=== PATIENT | female | born 1980 | race Caucasian/White ===

== ENCOUNTER 2018-04-20 22:40 | Emergency (ER) | payer OTHER ==
--- NOTE | 2018-04-20 23:46 | ERPHSYRPT ---
- History of Present Illness Time Seen by Provider: 04/20/18 23:46 Source: patient, family Exam Limitations: no limitations Patient Subjective Stated Complaint: pt states one hour ago began what felt like palpitaions and sob. no precipitating factors. pt states it has never happened before, but pt states she does suffer from anxiety attacks. Triage Nursing Assessment: nsr noted. pt slightly tachypnic. pt states she has chronic bronchitis Physician History: The patient is a 38-year-old female with family complaining that while watching a scary movie, she became short of breath with a rapid heart rate. She had just taken her Xanax she uses for anxiety and doesn't understand why she may have had a panic attack. The fast heart rate and shortness of breath lasted about an hour. It has completely resolved. She denies chest pain. Her past medical history significant for anxiety, major depressive disorder, PTSD, and Lucinda's thyroiditis. Her surgical history is significant for tubal ligation. Timing/Duration: today, hour(s) (1), resolved prior to arrival, sudden Activities at Onset: rest Severity of Dyspnea-Max: mild Severity of Dyspnea-Current: none Possible Cause: occasional episodes Modifying Factors: Improves With: nothing Associated Symptoms: heart racing Hx Tetanus, Diphtheria Vaccination/Date Given: No Hx Influenza Vaccination/Date Given: No Hx Pneumococcal Vaccination/Date Given: No Immunizations Up to Date: Yes - Review of Systems Constitutional: No Fever, No Chills Eyes: No Symptoms Ears, Nose, & Throat: No Symptoms Respiratory: Dyspnea Cardiac: Palpitations, No Chest Pain, No Edema, No Syncope Abdominal/Gastrointestinal: No Abdominal Pain, No Nausea, No Vomiting, No Diarrhea Genitourinary Symptoms: No Dysuria Musculoskeletal: No Back Pain, No Neck Pain Skin: No Rash Neurological: No Dizziness, No Focal Weakness, No Sensory Changes Psychological: No Symptoms Endocrine: No Symptoms Hematologic/Lymphatic: No Symptoms Immunological/Allergic: No Symptoms All Other Systems: Reviewed and Negative - Past Medical History Psycho-Social History: Anxiety, Depression Other Medical History: ptsd, major depressive disorder, aggorophobia, - Past Surgical History Past Surgical History: Yes Other Surgical History: pptl, ablasion - Social History Smoking Status: Current every day smoker How long have you smoked: 25 Exposure to second hand smoke: Yes Drug Use: marijuana Patient Lives Alone: Yes - Female History Hx Last Menstrual Period: n/a Hx Now: No - Nursing Vital Signs Nursing Vital Signs: Initial Vital Signs Temperature 98 F 04/20/18 22:44 Pulse Rate 81 04/20/18 22:44 Respiratory Rate 22 04/20/18 22:44 Blood Pressure 121/83 04/20/18 22:44 O2 Sat by Pulse Oximetry 95 04/20/18 22:44 Pain Scale Pain Intensity 0 - Physical Exam General Appearance: no apparent distress, alert Eye Exam: PERRL/EOMI Ears, Nose, Throat Exam: hearing grossly normal Neck Exam: normal inspection, supple Respiratory Exam: normal breath sounds Cardiovascular/Chest Exam: normal heart sounds, regular rate/rhythm Abdominal/Gastrointestinal Exam: soft, No tenderness, No distention, No mass Rectal Exam: not done Extremity Exam: non-tender, normal range of motion, normal inspection, no calf tenderness, no pedal edema Neurologic Exam: alert, oriented x 3, cooperative, respiratory care instructor II-XII nml as tested, sensation nml, No motor deficits Skin Exam: normal color, warm, No dry SpO2 Interpretation: normal SpO2: 95 O2 Delivery: Room Air - Radiology Exams Chest X-ray Interpretation: Interpreted by me, Negative (neg 2V chest, no comp cxr) Ordered Tests: Active Orders 24 hr Category Date Time Status Local Delivery Driver STAT Care 04/20/18 23:50 Active EKG-ER Only STAT Care 04/20/18 23:50 Active IV Insertion STAT Care 04/20/18 23:50 Active CHEST 2 VIEWS (PA AND LAT) Stat Exams 04/20/18 23:50 Taken CBC W DIFF Stat Lab 04/20/18 00:35 Completed CMP Stat Lab 04/20/18 00:35 Completed TROPONIN Q3H Lab 04/20/18 00:35 Received TROPONIN Q3H Lab 04/21/18 02:50 Ordered TROPONIN Q3H Lab 04/21/18 05:50 Ordered TROPONIN Q3H Lab 04/21/18 08:50 Ordered TROPONIN Q3H Lab 04/21/18 11:50 Ordered Lab/Rad Data: Laboratory Result Diagrams 04/20/18 00:35 04/20/18 00:35 Laboratory Results 04/20/18 04/20/18 04/20/18 Range/Units 00:35 00:35 00:35 WBC 9.8 (4.0-10.5) K/mm3 RBC 3.59 L (4.1-5.4) M/mm3 Hgb 12.1 (12.0-16.0) gm/dl Hct 36.1 (35-47) % MCV 100.6 H (78-100) fl MCH 33.7 H (26-32) pg MCHC 33.5 (32-36) g/dl RDW 13.0 (11.5-14.0) % Plt Count 242 (150-450) K/mm3 MPV 9.9 H (6-9.5) fl Gran % 65.3 (36.0-66.0) % Eos # (Auto) 0.01 (0-0.5) Absolute Lymphs (auto) 2.83 (1.0-4.6) Absolute Monos (auto) 0.55 (0.0-1.3) Lymphocytes % 28.8 (24.0-44.0) % Monocytes % 5.6 (0.0-12.0) % Eosinophils % 0.1 (0.00-5.0) % Basophils % 0.2 (0.0-0.4) % Absolute Granulocytes 6.42 (1.4-6.9) Basophils # 0.02 (0-0.4) Sodium 136 L (137-145) mmol/L Potassium 3.8 (3.5-5.1) mmol/L Chloride 106 (98-107) mmol/L Carbon Dioxide 23 (22-30) mmol/L Anion Gap 10.5 (5-15) MEQ/L BUN 13 (7-17) mg/dL Creatinine 0.71 (0.52-1.04) mg/dL Estimated GFR > 60.0 ML/MIN Glucose 99 (74-106) mg/dL Calcium 8.9 (8.4-10.2) mg/dL Total Bilirubin 0.40 (0.2-1.3) mg/dL AST 20 (14-36) U/L ALT 20 (0-35) U/L Alkaline Phosphatase 68 (38-126) U/L Troponin I < 0.012 (0.000-0.034) ng/mL Serum Total Protein 6.5 (6.3-8.2) g/dL Albumin 3.7 (3.5-5.0) g/dL - Progress Progress: improved Counseled pt/family regarding: lab results, diagnosis, rad results - Departure Time of Disposition: 01:24 Departure Disposition: Home Clinical Impression: Anxiety Condition: Stable Critical Care Time: No Referrals: ROXANA FANG [Primary Care Provider] -
[2018-04-21 00:41] LABS: BASOPHIL % 0.2 % (0.0-0.4); Basophil (Absolute #) 0.02 (0-0.4); Eosinophil % 0.1 % (0.00-5.0); Eosinophil (Absolute #) 0.01 (0-0.5); Granulocyte Absolute (ANC) 6.42 (1.4-6.9); Granulocytes % 65.3 % (36.0-66.0); Hematocrit 36.1 % (35-47); Hemoglobin 12.1 gm/dl (12.0-16.0); Lymphocyte (Absolute #) 2.83 (1.0-4.6); Lymphocytes % 28.8 % (24.0-44.0); Mean Cell Volume 100.6 fl (78-100); Mean Corpuscular Hemoglobin 33.7 pg (26-32); Mean Corpuscular Hgb Concent. 33.5 g/dl (32-36); Mean Platelet Volume 9.9 fl (6-9.5); Monocyte (Absolute #) 0.55 (0.0-1.3); Monocytes % 5.6 % (0.0-12.0); Platelet Count 242 K/mm3 (150-450); Red Blood Count 3.59 M/mm3 (4.1-5.4); White Blood Count 9.8 K/mm3 (4.0-10.5)
[2018-04-21 00:51] LABS: ALBUMIN 3.7 g/dL (3.5-5.0); ALKALINE PHOSPHATASE 68 U/L (38-126); ANION GAP 10.5 MEQ/L (5-15); BLOOD UREA NITROGEN 13 mg/dL (7-17); CHLORIDE 106 mmol/L (98-107); Calcium 8.9 mg/dL (8.4-10.2); Carbon Dioxide 23 mmol/L (22-30); Creatinine 1 0.71 mg/dL (0.52-1.04); Glucose 99 mg/dL (74-106); Potassium 3.8 mmol/L (3.5-5.1); SGOT/AST 20 U/L (14-36); SGPT/ALT 20 U/L (0-35); SODIUM 136 mmol/L (137-145); Total Protein 6.5 g/dL (6.3-8.2)
[2018-04-21 01:35] VITALS: BP 125/74; PULSE 81; O2SAT 92
--- NOTE | 2018-04-21 11:16 | XRAY ---
Exam: Two-view chest from 04/20/2018. Comparison: None available. Indication: 38-year-old female with history of anxiety; patient states around 9 PM this evening she felt like her heart was going "to beat out of her chest". Findings: Upright PA and lateral chest films were obtained. Multiple EKG leads are seen in place. The lungs are well expanded. The heart size and contour are normal. The whit and mediastinal structures appear intact. No air space infiltrates, vascular congestion, pneumothorax, or pleural fluid is seen. The posterior lung sulci have been barely cut off from the inferior margin of the lateral film. No acute osseous process is seen. Impression: 1. No acute cardiopulmonary process is seen.
== END 2018-04-21 01:35 | disposition home or self-care (01) ==
LOC: ED 22:40
DX: F41.9 Anxiety disorder, unspecified (principal); F32.9 Major depressive disorder, single episode, unspecified; F43.10 Post-traumatic stress disorder, unspecified
CPT/HCPCS: 36415; 71046; 80053; 84484; 85025; 93005; 93041; 99284

== ENCOUNTER 2018-10-26 08:42 | Emergency (ER) | payer MEDICAID, OTHER ==
--- NOTE | 2018-10-26 09:15 | ERPHSYRPT ---
- History of Present Illness Time Seen by Provider: 10/26/18 08:55 Source: patient Exam Limitations: no limitations Patient Subjective Stated Complaint: pt here for cough, pain to left side when takes deep breath for a week now,no fever. Triage Nursing Assessment: pt alert, resp easy, skin w.d.p,no edema, moves all ext well, has nonprductive cough Physician History: 38 y/o white female smoker and h/o copd presents with 1 week h/o cough and mild wheezing. pt denies fever but did noticed mild green sputum with cough. pt denies cp. pt does use a ventolin inhaler daily as needed. Timing/Duration: week(s) (1) Cough Quality/Degree: productive cough (greenish) Possible Cause: occasional episodes Modifying Factors: Improves With: albuterol inhaler, coughing Associated Symptoms: cough, wheezing (mild), No fever, No chills, No chest pain/ soreness, No sore throat Allergies/Adverse Reactions: No Known Drug Allergies Allergy (Unverified 10/26/18 08:57) Home Medications: Alprazolam 1 mg [Xanax 1 mg] 1 mg QID 10/26/18 [History] Brexpiprazole [Rexulti] 1 tab DAILY 10/26/18 [History] Cholecalciferol (Vitamin D3) [Vitamin D3] 1 ea DAILY 10/26/18 [History] Icosapent Ethyl [Vascepa] 1 gm DAILY 10/26/18 [History] Levothyroxine Sodium [Synthroid] 1 tab DAILY 10/26/18 [History] Metformin HCl 500 mg [Glucophage 500 MG] 500 mg BID 10/26/18 [History] Prazosin HCl 5 mg DAILY 10/26/18 [History] Prazosin HCl 5 mg DAILY 10/26/18 [History] Simvastatin 10 mg DAILY 10/26/18 [History] Venlafaxine HCl [Venlafaxine HCl ER] 300 mg DAILY 10/26/18 [History] Hx Tetanus, Diphtheria Vaccination/Date Given: No Hx Influenza Vaccination/Date Given: No Hx Pneumococcal Vaccination/Date Given: No Immunizations Up to Date: Yes - Review of Systems Constitutional: No Symptoms Eyes: No Symptoms Ears, Nose, & Throat: No Symptoms Respiratory: Cough, Wheezing Cardiac: No Symptoms Abdominal/Gastrointestinal: No Symptoms Genitourinary Symptoms: No Symptoms Musculoskeletal: No Symptoms Skin: No Symptoms Neurological: No Symptoms Psychological: No Symptoms Endocrine: No Symptoms Hematologic/Lymphatic: No Symptoms Immunological/Allergic: No Symptoms All Other Systems: Reviewed and Negative - Past Medical History Pertinent Past Medical History: No Neurological History: No Pertinent History ENT History: No Pertinent History Cardiac History: High Cholesterol Respiratory History: Bronchitis, COPD Endocrine Medical History: No Pertinent History Musculoskeletal History: No Pertinent History GI Medical History: No Pertinent History History: No Pertinent History Psycho-Social History: Anxiety, Depression Female Reproductive Disorders: No Pertinent History Other Medical History: ptsd, major depressive disorder, aggorophobia, - Past Surgical History Past Surgical History: Yes Neuro Surgical History: No Pertinent History Cardiac: No Pertinent History Respiratory: No Pertinent History Gastrointestinal: No Pertinent History Genitourinary: No Pertinent History Musculoskeletal: No Pertinent History Female Surgical History: Tubal Ligation, Other Other Surgical History: ablaSION - Social History Smoking Status: Current every day smoker How long have you smoked: 1/2 Exposure to second hand smoke: Yes Drug Use: none Patient Lives Alone: No - Female History Hx Last Menstrual Period: ablasion Hx Now: No - Nursing Vital Signs Nursing Vital Signs: Initial Vital Signs Temperature 98.2 F 10/26/18 08:52 Pulse Rate 90 10/26/18 08:52 Respiratory Rate 16 10/26/18 08:52 Blood Pressure 136/96 10/26/18 08:52 O2 Sat by Pulse Oximetry 96 10/26/18 08:52 Pain Scale Pain Intensity 8 - Physical Exam General Appearance: no apparent distress, alert, anxiety Eye Exam: PERRL/EOMI, eyes nml inspection Ears, Nose, Throat Exam: normal ENT inspection, moist mucous membranes Neck Exam: normal inspection, non-tender, supple, full range of motion Respiratory Exam: normal breath sounds, lungs clear, airway intact, No chest tenderness, No respiratory distress Cardiovascular Exam: regular rate/rhythm, normal heart sounds, normal peripheral pulses Gastrointestinal/Abdomen Exam: soft, normal bowel sounds, No tenderness Pelvic Exam: not done Rectal Exam: not done Back Exam: normal inspection, normal range of motion, No CVA tenderness, No vertebral tenderness Extremity Exam: normal inspection, normal range of motion, pelvis stable Neurologic Exam: alert, oriented x 3, cooperative, gate tender II-XII nml as tested Skin Exam: normal color, warm, dry Lymphatic Exam: adenopathy SpO2 Interpretation: normal SpO2: 96 O2 Delivery: Room Air - Course Nursing assessment & vital signs reviewed: Yes - Progress Progress: unchanged Air Movement: good Blood Culture(s) Obtained: No Antibiotics given: Yes (given pt get bronchitis often and routinely worsens to pneumonia) Counseled pt/family regarding: diagnosis, need for follow-up - Departure Departure Disposition: Home Clinical Impression: Bronchitis Condition: Stable Critical Care Time: No Referrals: ROXANA FANG [Primary Care Provider] - Additional Instructions: stop smoking. drink plenty of fluids. follow up with primary doctor for persistent symptoms. monitor your blood glucose closely while on the steroids. Prescriptions: Cefdinir 300 mg PO BID 7 Days #14 capsule Prednisone 10 mg [Deltasone 10 mg] 10 mg PO BID #6 tablet
[2018-10-26] MEDS ORDERED: solu-MEDROL 125 MG ONE (09:22)
[2018-10-26] MEDS ORDERED: Rocephin 1000 MG INJ ONE (09:23)
[2018-10-26] MEDS: Rocephin 1000 MG INJ IM ONE (09:25)
[2018-10-26] MEDS: solu-MEDROL 125 MG IM ONE (09:25)
[2018-10-26 09:40] VITALS: BP 130/92; PULSE 84; O2SAT 98
== END 2018-10-26 09:59 | disposition home or self-care (01) ==
LOC: ED 08:42
DX: J40 Bronchitis, not specified as acute or chronic (principal)
CPT/HCPCS: 96372; 99284; J0696; J2930

== ENCOUNTER 2019-05-16 11:09 | Emergency (ER) | payer MEDICAID, OTHER ==
[2019-05-16] MEDS ORDERED: Sodium Chloride 0.9% 1000 ML 1,000 ML IV STA (11:14)
[2019-05-16] MEDS ORDERED: Hydromorphone 1 mg/ml Ampule IV ONE (11:14)
[2019-05-16] MEDS ORDERED: Zofran 4 MG/2 ML VIAL IV ONE (11:14)
[2019-05-16] MEDS ORDERED: TORAdol 30 mg Injection IV ONE (11:14)
[2019-05-16] MEDS ORDERED: Zofran 4 MG/2 ML VIAL ONE (11:17)
[2019-05-16] MEDS ORDERED: TORAdol 30 mg Injection ONE (11:17)
[2019-05-16] MEDS ORDERED: Sodium Chloride 0.9% 1000 ML 1,000 ML ONE (11:17)
[2019-05-16] MEDS ORDERED: Hydromorphone 1 mg/ml Ampule ONE (11:17)
[2019-05-16 11:21] VITALS: O2SAT 99
--- NOTE | 2019-05-16 11:21 | ERPHSYRPT ---
- History of Present Illness Time Seen by Provider: 05/16/19 11:10 Historian: patient Exam Limitations: no limitations Physician History: This is a 39-year-old white female who presents with left flank pain that radiates to the left lower quadrant into the left groin. Onset of pain was this morning. There is described more of a mild pain but then suddenly, after being seen in outpatient clinic, the pain became worse. Patient was given a prescription for Macrobid antibiotic but did not even have time to fill it because of the sudden, severe onset of pain. She has had nausea and vomiting. Timing/Duration: today Quality: sharpness, stabbing Abdominal Pain Onset Location: LLQ, flank (Left) Pain Radiation: LLQ, groin (Left) Severity of Pain-Max: moderate Severity of Pain-Current: moderate Associated Symptoms: nausea, vomiting Previous symptoms: no prior history Allergies/Adverse Reactions: No Known Drug Allergies Allergy (Verified 05/16/19 11:21) Home Medications: Alprazolam 1 mg [Xanax 1 mg] 1 mg QID 10/26/18 [History] Brexpiprazole [Rexulti] 1 tab DAILY 10/26/18 [History] Cholecalciferol (Vitamin D3) [Vitamin D3] 1 ea DAILY 10/26/18 [History] Icosapent Ethyl [Vascepa] 1 gm DAILY 10/26/18 [History] Levothyroxine Sodium [Synthroid] 1 tab DAILY 10/26/18 [History] Metformin HCl 500 mg [Glucophage 500 MG] 500 mg BID 10/26/18 [History] Prazosin HCl 5 mg DAILY 10/26/18 [History] Simvastatin 10 mg DAILY 10/26/18 [History] Venlafaxine HCl [Venlafaxine HCl ER] 300 mg DAILY 10/26/18 [History] Hx Tetanus, Diphtheria Vaccination/Date Given: No Hx Influenza Vaccination/Date Given: No Hx Pneumococcal Vaccination/Date Given: No Travel Risk - International Travel Have you traveled outside of the country in past 3 weeks: No Have you or anyone close to you been diagnosed with or: No Do your reside in a community with a known COVID-19 case?: No - Coronavirus Screening Has patient experienced Coronavirus symptoms: No - Review of Systems Constitutional: No Symptoms Eyes: No Symptoms Ears, Nose, & Throat: No Symptoms Respiratory: No Symptoms Cardiac: No Symptoms Abdominal/Gastrointestinal: Abdominal Pain Genitourinary Symptoms: Flank Pain (Left) Musculoskeletal: No Symptoms Skin: No Symptoms Neurological: No Symptoms Psychological: No Symptoms Endocrine: No Symptoms Hematologic/Lymphatic: No Symptoms Immunological/Allergic: No Symptoms All Other Systems: Reviewed and Negative - Past Medical History Pertinent Past Medical History: No Neurological History: No Pertinent History ENT History: No Pertinent History Cardiac History: High Cholesterol Respiratory History: Bronchitis, COPD Endocrine Medical History: No Pertinent History Musculoskeletal History: No Pertinent History GI Medical History: No Pertinent History History: No Pertinent History Psycho-Social History: Anxiety, Depression Female Reproductive Disorders: No Pertinent History Other Medical History: ptsd, major depressive disorder, aggorophobia, - Past Surgical History Past Surgical History: Yes Neuro Surgical History: No Pertinent History Cardiac: No Pertinent History Respiratory: No Pertinent History Gastrointestinal: No Pertinent History Genitourinary: No Pertinent History Musculoskeletal: No Pertinent History Female Surgical History: Tubal Ligation, Other Other Surgical History: ablaSION - Social History Smoking Status: Current every day smoker How long have you smoked: 1/2 Exposure to second hand smoke: Yes Drug Use: none Patient Lives Alone: No - Nursing Vital Signs Nursing Vital Signs: Initial Vital Signs Temperature 97.1 F 05/16/19 11:10 Pulse Rate 69 05/16/19 11:10 Respiratory Rate 20 05/16/19 11:10 Blood Pressure 160/86 05/16/19 11:10 O2 Sat by Pulse Oximetry 99 05/16/19 11:10 Pain Scale Pain Intensity 4 - Physical Exam General Appearance: moderate distress, alert, anxiety, obese Eye Exam: PERRL/EOMI, eyes nml inspection Ears, Nose, Throat Exam: normal ENT inspection, moist mucous membranes Neck Exam: normal inspection, non-tender, supple, full range of motion Respiratory Exam: normal breath sounds, lungs clear, airway intact, No chest tenderness, No respiratory distress Cardiovascular Exam: regular rate/rhythm, normal heart sounds, normal peripheral pulses Gastrointestinal/Abdomen Exam: soft, normal bowel sounds, tenderness (mild llq) , No guarding, No rebound Pelvic Exam: not done Rectal Exam: not done Back Exam: normal inspection, normal range of motion, CVA tenderness (Left) Extremity Exam: normal inspection, normal range of motion, pelvis stable Neurologic Exam: alert, oriented x 3, cooperative, procedures rn II-XII nml as tested Skin Exam: normal color, warm, dry Lymphatic Exam: No adenopathy SpO2 Interpretation: normal O2 Delivery: Room Air - Course Nursing assessment & vital signs reviewed: Yes Ordered Tests: Active Orders 24 hr Category Date Time Status IV Insertion STAT Care 05/16/19 11:11 Active ABDOMEN AND PELVIS W/0 CONTRAS [CT] Stat Exams 05/16/19 11:14 Completed AMYLASE Stat Lab 05/16/19 11:27 Completed CBC W DIFF Stat Lab 05/16/19 11:27 Completed CMP Stat Lab 05/16/19 11:27 Completed LIPASE Stat Lab 05/16/19 11:27 Completed Medication Summary Generic Name Dose Route Start Last Admin Trade Name Freq PRN Reason Stop Dose Admin Sodium Chloride 1,000 mls @ 999 mls/hr 05/16/19 11:14 05/16/19 11:24 Sodium Chloride 0.9% 1000 Ml IV 05/16/19 12:14 999 mls/hr .Q1H1M STA Administration Discontinued Medications Generic Name Dose Route Start Last Admin Trade Name Freq PRN Reason Stop Dose Admin Hydromorphone HCl 1 mg 05/16/19 11:14 05/16/19 11:24 Hydromorphone 1 Mg/Ml Ampule IV 05/16/19 11:15 1 mg STAT ONE Administration Hydromorphone HCl Confirm 05/16/19 11:17 Hydromorphone 1 Mg/Ml Ampule Administered 05/16/19 11:18 Dose 1 mg .ROUTE .STK-MED ONE Sodium Chloride Confirm 05/16/19 11:17 Sodium Chloride 0.9% 1000 Ml Administered 05/16/19 11:18 Dose 1,000 mls @ ud .ROUTE .STK-MED ONE Ketorolac Tromethamine 30 mg 05/16/19 11:14 05/16/19 11:24 Toradol 30 Mg Injection IV 05/16/19 11:15 30 mg STAT ONE Administration Ketorolac Tromethamine Confirm 05/16/19 11:17 Toradol 30 Mg Injection Administered 05/16/19 11:18 Dose 30 mg .ROUTE .STK-MED ONE Ondansetron HCl 4 mg 05/16/19 11:14 05/16/19 11:24 Zofran 4 Mg/2 Ml Vial IV 05/16/19 11:15 4 mg STAT ONE Administration Ondansetron HCl Confirm 05/16/19 11:17 Zofran 4 Mg/2 Ml Vial Administered 05/16/19 11:18 Dose 4 mg .ROUTE .STK-MED ONE Lab/Rad Data: Laboratory Result Diagrams 05/16/19 11:27 05/16/19 11:27 Laboratory Results 05/16/19 05/16/19 Range/Units 11:27 11:27 WBC 10.3 (4.0-10.5) K/mm3 RBC 3.89 L (4.1-5.4) M/mm3 Hgb 13.2 (12.0-16.0) gm/dl Hct 39.4 (35-47) % MCV 101.3 H (78-100) fl MCH 33.9 H (26-32) pg MCHC 33.5 (32-36) g/dl RDW 12.4 (11.5-14.0) % Plt Count 294 (150-450) K/mm3 MPV 10.4 (7.5-11.0) fl Gran % 70.4 H (36.0-66.0) % Eos # (Auto) 0 (0-0.5) Absolute Lymphs (auto) 2.41 (1.0-4.6) Absolute Monos (auto) 0.61 (0.0-1.3) Lymphocytes % 23.4 L (24.0-44.0) % Monocytes % 5.9 (0.0-12.0) % Eosinophils % 0.0 (0.00-5.0) % Basophils % 0.3 (0.0-0.4) % Absolute Granulocytes 7.24 H (1.4-6.9) Basophils # 0.03 (0-0.4) Sodium 139 (137-145) mmol/L Potassium 3.4 L (3.5-5.1) mmol/L Chloride 109 H (98-107) mmol/L Carbon Dioxide 18 L (22-30) mmol/L Anion Gap 15.7 H (5-15) MEQ/L BUN 11 (7-17) mg/dL Creatinine 0.70 (0.52-1.04) mg/dL Estimated GFR > 60.0 ML/MIN Glucose 146 H (74-106) mg/dL Calcium 9.4 (8.4-10.2) mg/dL Total Bilirubin 0.50 (0.2-1.3) mg/dL AST 40 H (14-36) U/L ALT 47 H (0-35) U/L Alkaline Phosphatase 100 (38-126) U/L Serum Total Protein 7.3 (6.3-8.2) g/dL Albumin 4.1 (3.5-5.0) g/dL Amylase 55 (30-110) U/L Lipase 61 (23-300) U/L - Progress Progress: improved Progress Note: 05/16/19 11:51 The CAT scan of the abdomen and pelvis reveals a 2 to 3 mm distal left ureter calculus just proximal to the UVJ. There is minimal prominence of the left ureter and mild hydronephrosis present. Counseled pt/family regarding: lab results, diagnosis, need for follow-up, rad results - Departure Departure Disposition: Home Clinical Impression: Left ureteral calculus Condition: Stable Critical Care Time: No Additional Instructions: Drink plenty of fluids. Add ibuprofen 600 mg orally with food 3 times a day for the next 5 days. Follow-up with your primary care physician or urologist for further management. Take your Macrodantin prescription as prescribed. Prescriptions: Hydrocodone/APAP 5/325 [[place] 5/325 mg] 1 each PO Q8H PRN PRN #8 tablet MDD 3 PRN Reason: Pain
[2019-05-16 11:41] LABS: Absolute Neutrophil Ct (ANC) 7.24 (1.4-6.9); BASOPHIL % 0.3 % (0.0-0.4); Basophil (Absolute #) 0.03 (0-0.4); Eosinophil (Absolute #) 0 (0-0.5); Hematocrit 39.4 % (35-47); Hemoglobin 13.2 gm/dl (12.0-16.0); Lymphocyte (Absolute #) 2.41 (1.0-4.6); Lymphocytes % 23.4 % (24.0-44.0); Mean Cell Volume 101.3 fl (78-100); Mean Corpuscular Hemoglobin 33.9 pg (26-32); Mean Corpuscular Hgb Concent. 33.5 g/dl (32-36); Mean Platelet Volume 10.4 fl (7.5-11.0); Monocyte (Absolute #) 0.61 (0.0-1.3); Monocytes % 5.9 % (0.0-12.0); Neutrophil % 70.4 % (36.0-66.0); Platelet Count 294 K/mm3 (150-450); Red Blood Count 3.89 M/mm3 (4.1-5.4); Red Cell Distribution Width 12.4 % (11.5-14.0); White Blood Count 10.3 K/mm3 (4.0-10.5)
[2019-05-16 11:43] VITALS: BP 158/92; PULSE 92
[2019-05-16 11:46] LABS: ALBUMIN 4.1 g/dL (3.5-5.0); ALKALINE PHOSPHATASE 100 U/L (38-126); AMYLASE 55 U/L (30-110); ANION GAP 15.7 MEQ/L (5-15); BLOOD UREA NITROGEN 11 mg/dL (7-17); CHLORIDE 109 mmol/L (98-107); Calcium 9.4 mg/dL (8.4-10.2); Carbon Dioxide 18 mmol/L (22-30); Glucose 146 mg/dL (74-106); LIPASE 61 U/L (23-300); Potassium 3.4 mmol/L (3.5-5.1); SGOT/AST 40 U/L (14-36); SGPT/ALT 47 U/L (0-35); SODIUM 139 mmol/L (137-145); Total Protein 7.3 g/dL (6.3-8.2)
--- NOTE | 2019-05-16 11:50 | XRAY ---
Indication: Left abdomen/flank pain. Multiple contiguous axial images obtained through the abdomen and pelvis without contrast using renal stone protocol. Comparison: None Lung bases demonstrates mild bilateral dependent atelectasis. 11 mm well-circumscribed noncalcified nodule right lung base possibly granulomatous in this demographic. Heart is not enlarged. There is a 2-3 mm distal left ureter calculus just proximal to the UVJ. Proximal left ureter is minimally prominent and there is mild hydronephrosis consistent with partial obstructive uropathy. Additional 2-3 mm left upper renal calculus. Tiny cul-de-sac fluid presumed physiologic from rupture/leaking cyst. 2 cm right mid renal cortical cyst. Remaining liver, gallbladder, pancreas, spleen, adrenal glands, kidneys, ureters, bladder, uterus, and aorta appear unremarkable for noncontrast exam. Osseous structures intact with mild lumbosacral degenerative disc disease. Impression: 1. 2-3 mm distal left ureter calculus producing partial obstruction as detailed. Additional left renal micro-calculus and incidental right renal cyst. 2. 11 mm noncalcified right lung base nodule possibly granulomatous. Outside comparison studies would be of benefit if available. If not consider, CT chest to establish baseline with follow up per Fleischner guidelines.
== END 2019-05-16 12:14 | disposition home or self-care (01) ==
LOC: ED 11:09
DX: N13.2 Hydronephrosis with renal and ureteral calculous obstruction (principal)
CPT/HCPCS: 36000; 36415; 74176; 80053; 82150; 83690; 85025; 96374; 96375; 99284; J1170; J1885; J2405

== ENCOUNTER 2020-09-24 20:42 | Emergency (ER) | payer OTHER ==
--- NOTE | 2020-09-24 20:48 | ERPHSYRPT ---
- History of Present Illness Time Seen by Provider: 09/24/20 20:48 Historian: patient, family Exam Limitations: no limitations Physician History: This is a 40-year-old female who has had a bilateral tubal ligation in the past and presents with a 1 month history of intermittent vomiting and left lower quadrant abdominal pain. Patient has had a history of recurrent UTIs as well as ureteral calculi in the past. She also has a history of PTSD, major depressive disorder, agoraphobia, bronchitis and COPD. Patient continues to smoke cigarettes. Patient was seen at [facility] emergency department on 09/20/2020. Timing/Duration: intermittent, other (Has not for at least a month intermittently) Quality: sharpness Abdominal Pain Onset Location: LLQ Pain Radiation: no radiation Severity of Pain-Max: moderate Severity of Pain-Current: moderate Modifying Factors: Improves With: vomiting Associated Symptoms: loss of appetite, nausea, vomiting Previous symptoms: same symptoms as today, recently seen, recently treated Allergies/Adverse Reactions: No Known Drug Allergies Allergy (Verified 11/19/19 08:20) Home Medications: Venlafaxine HCl [Venlafaxine HCl ER] 150 mg DAILY 10/26/18 [History] Icosapent Ethyl [Vascepa] 1 ea DAILY 11/19/19 [History] Levothyroxine Sodium [Euthyrox] 1 ea DAILY 11/19/19 [History] Hx Tetanus, Diphtheria Vaccination/Date Given: No Hx Influenza Vaccination/Date Given: No Hx Pneumococcal Vaccination/Date Given: No Travel Risk - International Travel Have you traveled outside of the country in past 3 weeks: No - Coronavirus Screening Are you exhibiting any of the following symptoms?: No Close contact with a COVID-19 positive Pt in past 14-21 Days: No - Review of Systems Constitutional: No Symptoms Eyes: No Symptoms Ears, Nose, & Throat: No Symptoms Respiratory: No Symptoms Cardiac: No Symptoms Abdominal/Gastrointestinal: Abdominal Pain, Nausea, Vomiting Genitourinary Symptoms: No Symptoms Musculoskeletal: No Symptoms Neurological: No Symptoms Psychological: No Symptoms Endocrine: No Symptoms Hematologic/Lymphatic: No Symptoms Immunological/Allergic: No Symptoms All Other Systems: Reviewed and Negative - Past Medical History Pertinent Past Medical History: No Neurological History: No Pertinent History ENT History: No Pertinent History Cardiac History: High Cholesterol Respiratory History: Bronchitis, COPD Endocrine Medical History: No Pertinent History Musculoskeletal History: No Pertinent History GI Medical History: No Pertinent History History: No Pertinent History Psycho-Social History: Anxiety, Depression Female Reproductive Disorders: No Pertinent History Other Medical History: ptsd, major depressive disorder, aggorophobia, - Past Surgical History Past Surgical History: Yes Neuro Surgical History: No Pertinent History Cardiac: No Pertinent History Respiratory: No Pertinent History Gastrointestinal: No Pertinent History Genitourinary: No Pertinent History Musculoskeletal: No Pertinent History Female Surgical History: Tubal Ligation, Other Other Surgical History: ablaSION - Social History Smoking Status: Current every day smoker How long have you smoked: 1/2 Exposure to second hand smoke: Yes Drug Use: none Patient Lives Alone: Yes Significant Family History: no pertinent family hx - Nursing Vital Signs Nursing Vital Signs: Initial Vital Signs Temperature 99.8 F 09/24/20 21:34 Pulse Rate 123 H 09/24/20 21:34 Respiratory Rate 18 09/24/20 21:34 Blood Pressure 160/96 09/24/20 21:34 O2 Sat by Pulse Oximetry 99 09/24/20 21:34 Pain Scale Pain Intensity 9 - Physical Exam General Appearance: no apparent distress, alert, anxiety Eye Exam: PERRL/EOMI, eyes nml inspection Ears, Nose, Throat Exam: normal ENT inspection, moist mucous membranes Neck Exam: normal inspection, non-tender, supple, full range of motion Respiratory Exam: normal breath sounds, lungs clear, airway intact, No chest tenderness, No respiratory distress Cardiovascular Exam: regular rate/rhythm, normal heart sounds, normal peripheral pulses Gastrointestinal/Abdomen Exam: soft, normal bowel sounds, tenderness (Lower quad rant), guarding (Plus/Minus), No rebound Pelvic Exam: not done Rectal Exam: not done Back Exam: normal inspection, normal range of motion, No CVA tenderness, No vertebral tenderness Extremity Exam: normal inspection, normal range of motion, pelvis stable Neurologic Exam: alert, oriented x 3, cooperative, room designer II-XII nml as tested, normal mood/affect, nml cerebellar function, nml station & gait, sensation nml Skin Exam: normal color, warm, dry Lymphatic Exam: No adenopathy SpO2 Interpretation: normal O2 Delivery: Room Air - Course Nursing assessment & vital signs reviewed: Yes Ordered Tests: Active Orders 24 hr Category Date Time Status IV Insertion STAT Care 09/24/20 21:49 Active ABDOMEN AND PELVIS W/0 CONTRAS [CT] Stat Exams 09/24/20 21:51 Taken AMYLASE Stat Lab 09/24/20 22:15 Completed CBC W DIFF Stat Lab 09/24/20 22:15 Completed CMP Stat Lab 09/24/20 22:15 Completed CULTURE,URINE Stat Lab 09/24/20 22:22 Received LIPASE Stat Lab 09/24/20 22:15 Completed Lactic Acid Stat Lab 09/24/20 21:49 Completed UA W/RFX UR CULTURE Stat Lab 09/24/20 22:22 Completed Medication Summary Discontinued Medications Generic Name Dose Route Start Last Admin Trade Name Titiq PRN Reason Stop Dose Admin Hydromorphone HCl 1 mg 09/24/20 21:50 09/24/20 23:02 Hydromorphone 1 Mg/Ml Injection IV 09/24/20 21:51 1 mg STAT ONE Administration Hydromorphone HCl Confirm 09/24/20 22:53 Hydromorphone 1 Mg/Ml Injection Administered 09/24/20 22:54 Dose 1 mg .ROUTE .STK-MED ONE Sodium Chloride 1,000 mls @ 999 mls/hr 09/24/20 21:49 09/24/20 23:00 Sodium Chloride 0.9% 1000 Ml IV 09/24/20 22:49 999 mls/hr .Q1H1M STA Administration Ceftriaxone Sodium/Dextrose 1 g in 50 mls @ 100 mls/hr 09/24/20 22:49 09/24/20 23:01 Rocephin 1 Gm-D5w 50 Ml Bag IV 09/24/20 23:18 100 mls/hr STAT STA 100 mls/hr Administration Sodium Chloride Confirm 09/24/20 22:53 Sodium Chloride 0.9% 1000 Ml Administered 09/24/20 22:54 Dose 1,000 mls @ ud .ROUTE .STK-MED ONE Ceftriaxone Sodium/Dextrose Confirm 09/24/20 22:53 Rocephin 1 Gm-D5w 50 Ml Bag Administered 09/24/20 22:54 Dose 1 g in 50 mls @ ud IV .STK-MED ONE Prochlorperazine Edisylate 10 mg 09/24/20 21:49 09/24/20 23:00 Compazine 10 Mg/2 Ml IV 09/24/20 21:50 10 mg STAT ONE Administration Prochlorperazine Edisylate Confirm 09/24/20 22:53 Compazine 10 Mg/2 Ml Administered 09/24/20 22:54 Dose 10 mg .ROUTE .STK-MED ONE Lab/Rad Data: Laboratory Result Diagrams 09/24/20 22:15 09/24/20 22:15 Laboratory Results 09/24/20 09/24/20 09/24/20 Range/Units 22:22 22:15 22:15 WBC 8.4 (4.0-10.5) K/mm3 RBC 3.88 L (4.1-5.4) M/mm3 Hgb 12.3 (12.0-16.0) gm/dl Hct 38.4 (35-47) % MCV 99.0 (78-100) fl MCH 31.7 (26-32) pg MCHC 32.0 (32-36) g/dl RDW 14.9 H (11.5-14.0) % Plt Count 265 (150-450) K/mm3 MPV 9.7 (7.5-11.0) fl Gran % 82.0 H (36.0-66.0) % Eos # (Auto) 0.01 (0-0.5) Absolute Lymphs (auto) 1.16 (1.0-4.6) Absolute Monos (auto) 0.33 (0.0-1.3) Lymphocytes % 13.8 L (24.0-44.0) % Monocytes % 3.9 (0.0-12.0) % Eosinophils % 0.1 (0.00-5.0) % Basophils % 0.2 (0.0-0.4) % Absolute Granulocytes 6.88 (1.4-6.9) Basophils # 0.02 (0-0.4) Sodium 137 (137-145) mmol/L Potassium 3.9 (3.5-5.1) mmol/L Chloride 102 (98-107) mmol/L Carbon Dioxide 24 (22-30) mmol/L Anion Gap 15.4 H (5-15) MEQ/L BUN 7 (7-17) mg/dL Creatinine 0.75 (0.52-1.04) mg/dL Estimated GFR > 60.0 ML/MIN Glucose 102 (74-106) mg/dL Lactic Acid (0.4-2.0) Calcium 9.4 (8.4-10.2) mg/dL Total Bilirubin 0.80 (0.2-1.3) mg/dL AST 52 H (14-36) U/L ALT 47 H (0-35) U/L Alkaline Phosphatase 110 (38-126) U/L Serum Total Protein 7.7 (6.3-8.2) g/dL Albumin 4.3 (3.5-5.0) g/dL Amylase 38 (30-110) U/L Lipase 66 (23-300) U/L Urine Color MANDI (YELLOW) Urine Appearance SLIGHTLY CLOUDY (CLEAR) Urine pH 6.0 (5-6) Ur Specific Hank[place] 1.019 (1.005-1.025) Urine Protein 100 (Negative) Urine Ketones TRACE (NEGATIVE) Urine Blood NEGATIVE (0-5) Gopal/ul Urine Nitrite POSITIVE (NEGATIVE) Urine Bilirubin NEGATIVE (NEGATIVE) Urine Urobilinogen 4 (0-1) mg/dL Ur Leukocyte Esterase TRACE (NEGATIVE) Urine WBC (Auto) 26-50 (0-5) /HPF Urine RBC (Auto) 11-15 (0-2) /HPF U Epithel Cells (Auto) FEW (FEW) /HPF Urine Bacteria (Auto) FEW (NEGATIVE) /HPF Urine Mucus (Auto) SLIGHT (NEGATIVE) /HPF Urine Culture Reflexed YES (NO) Urine Glucose NEGATIVE (NEGATIVE) mg/dL 09/24/20 Range/Units 21:49 WBC (4.0-10.5) K/mm3 RBC (4.1-5.4) M/mm3 Hgb (12.0-16.0) gm/dl Hct (35-47) % MCV (78-100) fl MCH (26-32) pg MCHC (32-36) g/dl RDW (11.5-14.0) % Plt Count (150-450) K/mm3 MPV (7.5-11.0) fl Gran % (36.0-66.0) % Eos # (Auto) (0-0.5) Absolute Lymphs (auto) (1.0-4.6) Absolute Monos (auto) (0.0-1.3) Lymphocytes % (24.0-44.0) % Monocytes % (0.0-12.0) % Eosinophils % (0.00-5.0) % Basophils % (0.0-0.4) % Absolute Granulocytes (1.4-6.9) Basophils # (0-0.4) Sodium (137-145) mmol/L Potassium (3.5-5.1) mmol/L Chloride (98-107) mmol/L Carbon Dioxide (22-30) mmol/L Anion Gap (5-15) MEQ/L BUN (7-17) mg/dL Creatinine (0.52-1.04) mg/dL Estimated GFR ML/MIN Glucose (74-106) mg/dL Lactic Acid 1.3 (0.4-2.0) Calcium (8.4-10.2) mg/dL Total Bilirubin (0.2-1.3) mg/dL AST (14-36) U/L ALT (0-35) U/L Alkaline Phosphatase (38-126) U/L Serum Total Protein (6.3-8.2) g/dL Albumin (3.5-5.0) g/dL Amylase (30-110) U/L Lipase (23-300) U/L Urine Color (YELLOW) Urine Appearance (CLEAR) Urine pH (5-6) Ur Specific Hankamer (1.005-1.025) Urine Protein (Negative) Urine Ketones (NEGATIVE) Urine Blood (0-5) Gopal/ul Urine Nitrite (NEGATIVE) Urine Bilirubin (NEGATIVE) Urine Urobilinogen (0-1) mg/dL Ur Leukocyte Esterase (NEGATIVE) Urine WBC (Auto) (0-5) /HPF Urine RBC (Auto) (0-2) /HPF U Epithel Cells (Auto) (FEW) /HPF Urine Bacteria (Auto) (NEGATIVE) /HPF Urine Mucus (Auto) (NEGATIVE) /HPF Urine Culture Reflexed (NO) Urine Glucose (NEGATIVE) mg/dL - Progress Progress: improved, pain not gone completely, re-examined Progress Note: 09/25/20 00:02 CAT scan of the abdomen and pelvis without contrast shows 2 left ureteral calculi at the UVJ junction with mild hydronephrosis. Counseled pt/family regarding: lab results, diagnosis, need for follow-up, rad results - Departure Departure Disposition: Home Clinical Impression: Abdominal pain, UTI (urinary tract infection), Vomiting, Mild dehydration, Calculus of distal left ureter Condition: Stable Critical Care Time: No Referrals: ROXANA FANG [Primary Care Provider] - Additional Instructions: Drink plenty of fluids. Take medication as prescribed. Follow-up with your primary care physician for further management. Prescriptions: Ondansetron ODT 4 MG [Zofran Odt 4 mg] 4 mg PO Q6H PRN PRN #10 tab.rapdis PRN Reason: Vomiting Ciprofloxacin [Cipro 500 MG] 500 mg PO BID #14 tablet Tamsulosin HCl 0.4 mg [Flomax 0.4 MG] 0.4 mg PO DAILY #7 cap
[2020-09-24 22:22] LABS: Absolute Neutrophil Ct (ANC) 6.88 (1.4-6.9); BASOPHIL % 0.2 % (0.0-0.4); Basophil (Absolute #) 0.02 (0-0.4); Eosinophil % 0.1 % (0.00-5.0); Eosinophil (Absolute #) 0.01 (0-0.5); Hematocrit 38.4 % (35-47); Hemoglobin 12.3 gm/dl (12.0-16.0); Lymphocyte (Absolute #) 1.16 (1.0-4.6); Lymphocytes % 13.8 % (24.0-44.0); Mean Corpuscular Hemoglobin 31.7 pg (26-32); Mean Platelet Volume 9.7 fl (7.5-11.0); Monocyte (Absolute #) 0.33 (0.0-1.3); Monocytes % 3.9 % (0.0-12.0); Platelet Count 265 K/mm3 (150-450); Red Blood Count 3.88 M/mm3 (4.1-5.4); Red Cell Distribution Width 14.9 % (11.5-14.0); White Blood Count 8.4 K/mm3 (4.0-10.5)
[2020-09-24 22:39] LABS: Appearance SLIGHTLY CLOUDY (CLEAR); Bacteria FEW /HPF (NEGATIVE); Bilirubin NEGATIVE (NEGATIVE); Blood NEGATIVE Ery/ul (0-5); Epithelial Cells FEW /HPF (FEW); Glucose NEGATIVE (NEGATIVE); Ketones TRACE (NEGATIVE); Leukocyte Esterase TRACE (NEGATIVE); Mucus SLIGHT /HPF (NEGATIVE); Nitrite POSITIVE (NEGATIVE); Protein,Urine Dip 100 (Negative); Specific Gravity 1.019 (1.005-1.025); Urobilinogen 4 mg/dL (0-1); WBC 26-50 /HPF (0-5)
[2020-09-24 22:39] LABS: ALBUMIN 4.3 g/dL (3.5-5.0); ALKALINE PHOSPHATASE 110 U/L (38-126); AMYLASE 38 U/L (30-110); ANION GAP 15.4 MEQ/L (5-15); BLOOD UREA NITROGEN 7 mg/dL (7-17); CHLORIDE 102 mmol/L (98-107); Calcium 9.4 mg/dL (8.4-10.2); Carbon Dioxide 24 mmol/L (22-30); Creatinine 1 0.75 mg/dL (0.52-1.04); EST GLOMERULAR FILTRATION RATE > 60.0 ML/MIN; Glucose 102 mg/dL (74-106); LIPASE 66 U/L (23-300); Potassium 3.9 mmol/L (3.5-5.1); SGOT/AST 52 U/L (14-36); SGPT/ALT 47 U/L (0-35); SODIUM 137 mmol/L (137-145); Total Protein 7.7 g/dL (6.3-8.2)
[2020-09-24] MEDS ORDERED: Compazine 10 MG/2 ML ONE (22:53)
[2020-09-24] MEDS ORDERED: Sodium Chloride 0.9% 1000 ML 1,000 ML ONE (22:53)
[2020-09-24] MEDS ORDERED: ROCEPHIN 1 Gm-D5w 50 ml Bag** 1 G/50 ML IVPB IV ONE (22:53)
[2020-09-24] MEDS ORDERED: Hydromorphone 1 mg/ml Injection ONE (22:53)
[2020-09-24] MEDS: Compazine 10 MG/2 ML IV ONE (23:00)
[2020-09-24] MEDS: Sodium Chloride 0.9% 1000 ML 1,000 ML IV STA (23:00)
[2020-09-24] MEDS: ROCEPHIN 1 Gm-D5w 50 ml Bag** 1 G/50 ML IVPB IV STA (23:01)
[2020-09-24] MEDS: Hydromorphone 1 mg/ml Injection IV ONE (23:02)
[2020-09-25] MEDS ORDERED: Flomax 0.4 MG ONE (00:10)
[2020-09-25] MEDS: Flomax 0.4 MG PO ONE (00:17)
[2020-09-25] MEDS: Diflucan 100 MG PO ONE (00:17)
[2020-09-25 00:40] VITALS: BP 130/75; PULSE 100; O2SAT 99
--- NOTE | 2020-09-25 10:38 | XRAY ---
Exam: CT of the abdomen and pelvis without IV contrast from 09/24/2020. CTDI: 9.90 mGy Comparison: CT of the abdomen and pelvis without IV contrast from 05/16/2019. Indication: 40-year-old female with left lower quadrant pain and back pain for 5 days with frequent urination and pressure; nausea/vomiting/diarrhea for one week; history of renal stones; history of cholecystectomy 3 months ago; also has history of tubal ligation and thermal ablation in 2005. Technique: Non-IV contrast axial images were obtained through the abdomen and pelvis. Reconstructed coronal and sagittal images were created and reviewed. Findings: I again see a pleural-based 10-11 mm low-attenuation nodule abutting the posterior aspect of the right hemidiaphragm on axial image #10. This is unchanged from axial image #18 from 05/16/2019. This measures about -105.7 Hounsfield units suggesting that it may represent a lipoma. The remainder of the lung bases appears clear. The heart size is normal. The liver attenuation is slightly less than the spleen suggesting there may be mild hepatic steatosis. Otherwise, the liver appears unremarkable. Surgical clips consistent with prior cholecystectomy are noted. No pathological biliary duct distention is seen. The spleen appears of normal size and reveals no mass. The pancreas and adrenal glands appear normal. I again see a 2.1 cm in diameter cyst within the upper to middle aspect of the right kidney posterolaterally. No right-sided renal calculi or hydronephrosis is seen. Previously noted small nonobstructing stone within the upper pole of the left kidney is no longer seen. However, I now detect mild left-sided hydroureteronephrosis which appears to be due to 2 small distal left ureteral stones near the left ureterovesical junction, best seen on coronal image #91. The more proximal stone measures about 3 mm in diameter and the more distal stone measures about 2 mm to 2 1/2 mm in diameter. The urinary bladder appears grossly unremarkable. The abdominal aorta appears of normal diameter. No abnormal retroperitoneal lymphadenopathy is seen. There is no free intraperitoneal air or bowel containing ventral hernia. I do note a small supraumbilical fatty ventral hernia, best seen on midline sagittal image #101. This is essentially unchanged in retrospect. The bowel is nonobstructed. I see only minimal proximal sigmoid colon diverticulosis without evidence of diverticulitis. The appendix appears unremarkable within the right lower quadrant. There is no free intraperitoneal fluid. The uterus is anteflexed and appears unremarkable. Both ovaries are identified and appear grossly unremarkable. No abnormal pelvic lymphadenopathy is seen. Some benign appearing postinflammatory lymph nodes are seen within each groin. The urinary bladder is partially distended and appears unremarkable. The skeleton reveals no acute fracture or aggressive bone lesion. There is mild/moderate degenerative disc disease at L5-S1 with mild diffuse posterior L5-S1 disc bulging. The L5-S1 vacuum disc phenomena is new as compared to 05/16/2019. In addition, there is a small round sclerotic density within the upper posterior left side of the T11 vertebral body which in retrospect is unchanged and probably represents a small vertebral hemangioma. There is very slight convexity of the upper lumbar spine toward the right centered at L2-L3. This is unchanged. Impression: 1. There are 2 small stones near the left ureterovesical junction resulting in mild left-sided hydroureteronephrosis. 2. Prior small stone within the upper pole of the left kidney on 05/16/2019 is no longer seen. 3. Status post cholecystectomy. 4. The appendix appears unremarkable. 5. Minimal proximal sigmoid colon diverticulosis without evidence of diverticulitis. 6. Incidental simple right renal cyst representing no significant change. 7. There is a suggestion of mild hepatic steatosis. I also note a small stable supraumbilical fatty hernia. 8. Skeletal findings, as discussed above.
== END 2020-09-25 00:40 | disposition home or self-care (01) ==
LOC: ED 20:42
DX: N39.0 Urinary tract infection, site not specified (principal); R11.10 Vomiting, unspecified; E86.0 Dehydration; N13.2 Hydronephrosis with renal and ureteral calculous obstruction
CPT/HCPCS: 36000; 36415; 74176; 80053; 81001; 82150; 83605; 83690; 85025; 87077; 87086; 87186; 96374; 96375; 99284; J0696; J1170; A9270-GY

== ENCOUNTER 2020-10-08 05:26 | Emergency (ER) | payer OTHER ==
[2020-10-08] MEDS ORDERED: Adacel Vial IM ONE ×2 (05:36→05:38)
[2020-10-08 05:50] LABS: Absolute Neutrophil Ct (ANC) 3.34 (1.4-6.9); BASOPHIL % 0.3 % (0.0-0.4); Basophil (Absolute #) 0.02 (0-0.4); Eosinophil % 0.6 % (0.00-5.0); Eosinophil (Absolute #) 0.04 (0-0.5); Hematocrit 36.1 % (35-47); Hemoglobin 11.6 gm/dl (12.0-16.0); Lymphocyte (Absolute #) 2.72 (1.0-4.6); Lymphocytes % 41.3 % (24.0-44.0); Mean Cell Volume 97.8 fl (78-100); Mean Corpuscular Hemoglobin 31.4 pg (26-32); Mean Corpuscular Hgb Concent. 32.1 g/dl (32-36); Mean Platelet Volume 9.6 fl (7.5-11.0); Monocyte (Absolute #) 0.46 (0.0-1.3); Neutrophil % 50.8 % (36.0-66.0); Platelet Count 318 K/mm3 (150-450); Red Blood Count 3.69 M/mm3 (4.1-5.4); Red Cell Distribution Width 15.1 % (11.5-14.0); White Blood Count 6.6 K/mm3 (4.0-10.5)
[2020-10-08 06:05] LABS: ALBUMIN 4.3 g/dL (3.5-5.0); ALKALINE PHOSPHATASE 108 U/L (38-126); ANION GAP 17.9 MEQ/L (5-15); BLOOD UREA NITROGEN 6 mg/dL (7-17); CHLORIDE 110 mmol/L (98-107); Calcium 9.2 mg/dL (8.4-10.2); Carbon Dioxide 19 mmol/L (22-30); Creatinine 1 0.72 mg/dL (0.52-1.04); EST GLOMERULAR FILTRATION RATE > 60.0 ML/MIN; ETHYL ALCOHOL 194 mg/dL (0-10); Glucose 108 mg/dL (74-106); Potassium 3.2 mmol/L (3.5-5.1); SGOT/AST 52 U/L (14-36); SGPT/ALT 44 U/L (0-35); SODIUM 143 mmol/L (137-145); Total Protein 7.4 g/dL (6.3-8.2)
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
[2020-10-08] MEDS ORDERED: TORAdol 30 mg Injection ONE (06:38)
[2020-10-08] MEDS ORDERED: TORAdol 30 mg Injection IM ONE (06:38)
[2020-10-08 07:03] VITALS: BP 147/92; PULSE 90; O2SAT 100
--- NOTE | 2020-10-09 00:05 | XRAY ---
Exam: CT of the head without IV contrast from 10/08/2020. CTDI: 53.92 mGy Comparison: None. Indication: 40-year-old female with fall and head injury/concussion with loss of consciousness for less than 30 minutes; complains of posterior left side head pain with laceration; patient struck head on concrete floor. Technique: Non-IV contrast axial images were obtained through the brain. Reconstructed coronal and sagittal images were created and reviewed. Findings: The ventricles appear of normal size. No focal mass effect or midline shift is seen. No acute intracranial bleed or abnormal extra-axial fluid collection is seen. The hathaway matter-white matter interfaces appear unremarkable. No low attenuation infarct is seen. The cortical sulci and basilar cisterns appear unremarkable. The calvarium of the skull appears intact without fracture. I note focal soft tissue swelling with a small scalp hematoma within the upper posterior left parietal region. The visualized paranasal sinuses are clear without air-fluid levels. The mastoid air cells are clear without effusion. The middle ear cavities appear grossly unremarkable. No significant abnormality of the orbits is seen. Impression: 1. No acute intracranial bleed or other acute intracranial abnormality is seen. 2. I note some mild scalp soft tissue swelling/hematoma overlying the upper posterior left parietal region. No underlying fracture of the skull is seen.
--- NOTE | 2020-10-09 00:14 | XRAY ---
Exam: CT of the cervical spine without IV contrast from 10/08/2020. CTDI: 57.16 mGy Comparison: None. Indication: 40-year-old female fell striking posterior left side of head with loss of consciousness for less than 30 minutes; complains of posterior left side head pain and laceration; patient hit head on concrete floor. Technique: Non-IV contrast axial images were obtained through the cervical spine. Reconstructed coronal and sagittal images were created and reviewed. Findings: I see no acute cervical spine fracture, AP subluxation, or prevertebral soft tissue swelling. The preodontoid space is normal. The cranial-cervical junction appears unremarkable. There are no jumped or perched facet joints. I note mild narrowing of the C5-C6 interspace height associated with small anterior and posterior vertebral endplate spurs indicating mild degenerative disc disease. The other cervical interspaces appear unremarkable. No central canal spinal stenosis is seen. The neural foramen are patent throughout the cervical spine. Some tiny biapical pleural blebs are noted. The paraspinal soft tissues appear unremarkable. Impression: 1. No acute cervical spine fracture, AP subluxation, or prevertebral soft tissue swelling is seen. 2. Early/mild degenerative disc disease at C5-C6. 3. Tiny biapical pleural blebs are incidentally seen.
== END 2020-10-08 07:03 | disposition home or self-care (01) ==
LOC: ED 05:26
DX: S01.01XA Laceration without foreign body of scalp, initial encounter (principal); W19.XXXA Unspecified fall, initial encounter; F10.929 Alcohol use, unspecified with intoxication, unspecified; R51.9 Headache, unspecified
CPT/HCPCS: 12002; 36415; 70450; 72125; 80053; 80307; 81025; 85025; 90471; 90715; 96372; 99284; J1885; G0480

== ENCOUNTER 2024-04-15 20:04 | Emergency (ER) | payer OTHER ==
[2024-04-15 20:31] VITALS: TEMP 98.2
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
[2024-04-15] MEDS ORDERED: Nubain 10 MG/ML ONE (21:15)
[2024-04-15] MEDS: Nubain 10 MG/ML IM ONE (21:16)
[2024-04-15 21:45] VITALS: RESP 12
--- NOTE | 2024-04-15 21:54 | XRAY ---
CLINICAL HISTORY: TRAUMA COMPARISON: None. TECHNIQUE: Axial non-contrast CT scan of the orbits was performed. Coronal and sagittal reconstructive images were obtained. One of the following dose reduction techniques were utilized for this exam: Automated exposure control, adjustment of the mA and/or kV according to patient size, and use of iterative reconstruction. FINDINGS: Orbits: Acute fracture of floor of left orbit with mild herniation of orbital fat in the maxillary sinus. No entrapment of inferior rectus muscle noted. Significant surrounding periorbital soft tissue swelling with surgical emphysema. Mild left intraorbital air also seen along the outer aspects of medial and lateral recti muscles. The right orbit appears unremarkable. Sinuses: Mild left maxillary hemosinus. Globe: Globes are normal in size and shape. No evidence of intraocular masses or foreign bodies. Other bony Structures: The faint lucent line in left zygomatic process is sutural. Soft Tissues: Normal appearance of the rest of the soft tissues. IMPRESSION: 1. Acute fracture of floor of left orbit with mild herniation of orbital fat in the maxillary sinus. No entrapment of inferior rectus muscle noted. 2. Significant surrounding periorbital soft tissue swelling with emphysematous changes on left side. 3. Mild left intraorbital air 4. Mild left maxillary hemosinus 5. The integrity of the left globe is grossly preserved. Electronically Signed by: Joaquina Biswas MD. (04/15/2024 21:50:19 EST)
[2024-04-15 22:07] VITALS: BP 116/74; PULSE 105
[2024-04-15 22:09] VITALS: O2SAT 96
[2024-04-15] MEDS ORDERED: NORCO 5/325 MG ONE (22:22)
[2024-04-15] MEDS ORDERED: Augmentin 875-125 Tablet ONE (22:22)
[2024-04-15] MEDS: Augmentin 875-125 Tablet PO ONE (22:24)
[2024-04-15] MEDS: NORCO 5/325 MG PO ONE (22:25)
[2024-04-15] MEDS ORDERED: ZOFRAN ODT 4 MG ONE (22:29)
[2024-04-15] MEDS: ZOFRAN ODT 4 MG PO ONE (22:30)
== END 2024-04-15 22:56 | disposition home or self-care (01) ==
LOC: ED 20:04
DX: S02.32XA Fracture of orbital floor, left side, initial encounter for closed fracture (principal); Y04.2XXA Assault by strike against or bumped into by another person, initial encounter; E78.5 Hyperlipidemia, unspecified; Z72.0 Tobacco use; Z79.891 Long term (current) use of opiate analgesic; Z79.899 Other long term (current) drug therapy
CPT/HCPCS: 70480; 96372; 99284; J2300; Q0162; A9270-GY

== ENCOUNTER 2024-11-16 19:35 | Emergency (ER) | payer OTHER ==
[2024-11-16 19:50] VITALS: TEMP 97.2
--- NOTE | 2024-11-16 20:14 | ERPHSYRPT ---
- History of Present Illness Time Seen by Provider: 11/16/24 20:14 Source: patient Exam Limitations: no limitations Patient Subjective Stated Complaint: c/o right sided facial swelling Triage Nursing Assessment: patient brought to ED by with c/o right sided facial swelling. patient states she was eating doritos at 1300 and noticed the right side of her jaw started swelling and went down overtime. around 45 minutes prior to arrival to ED she was eating pizza and the swelling started again and got worse. patients right side of face is swollen upon arrival, patient states it has gone down some. denies pain, states she feels pressure in her jaw, states she feels lightheaded, vitals wnl, skin w/n/d, afebrile, patient doesn't appear to be in any distress at this time. Allergies/Adverse Reactions: No Known Drug Allergies Allergy (Verified 11/16/24 19:44) Home Medications: Levothyroxine Sodium [Euthyrox] 1 ea PO DAILY 11/19/19 [History] Atorvastatin Calcium 20 mg PO DAILY 04/15/24 [History] Cholecalciferol (Vitamin D3) [Vitamin D] 50,000 units PO WEEKLY 11/16/24 [History] Levothyroxine Sodium 25 mcg PO DAILY 11/16/24 [History] icosapent ethyL [Icosapent Ethyl] 1 gm PO DAILY 11/16/24 [History] Hx Tetanus, Diphtheria Vaccination/Date Given: Yes Hx Influenza Vaccination/Date Given: No Hx Pneumococcal Vaccination/Date Given: No Travel Risk - International Travel Have you traveled outside of the country in past 3 weeks: No - Emerging Infectious Disease Are you exhibiting symptoms associated with any current EIDs: No - Past Medical History Pertinent Past Medical History: No Neurological History: No Pertinent History ENT History: No Pertinent History Cardiac History: High Cholesterol Respiratory History: Bronchitis, COPD Endocrine Medical History: No Pertinent History, Hypothyroidism Musculoskeletal History: No Pertinent History GI Medical History: No Pertinent History History: No Pertinent History Psycho-Social History: Anxiety, Depression Female Reproductive Disorders: No Pertinent History Other Medical History: ptsd, major depressive disorder, agorophobia, 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 - Past Surgical History Past Surgical History: Yes Neuro Surgical History: No Pertinent History Cardiac: No Pertinent History Respiratory: No Pertinent History Gastrointestinal: Cholecystectomy Genitourinary: No Pertinent History Musculoskeletal: No Pertinent History Female Surgical History: Tubal Ligation, Other Other Surgical History: ablation Significant Family History: no pertinent family hx - Female History Hx Last Menstrual Period: tubal/ablation Hx Now: No - Social History Smoking Status: Current every day smoker How long have you smoked: 26 yrs Exposure to second hand smoke: Yes Drug Use: none - Social Determinants of Health Will the patient participate in the screening: Declined to provide - Nursing Vital Signs Nursing Vital Signs: Initial Vital Signs Blood Pressure 122/80 11/16/24 19:41 O2 Sat by Pulse Oximetry 96 11/16/24 19:41 Pain Scale Pain Intensity 0 - Physical Exam SpO2: 98 Ordered Tests: Active Orders 24 hr Category Date Time Status FACIAL BONES WITH CONTRAST [CT] Stat Exams 11/16/24 20:35 Completed Medication Summary Discontinued Medications Generic Name Dose Route Start Last Admin Trade Name Calista PRN Reason Stop Dose Admin Amoxicillin/Clavulanate Potassium 875 mg 11/16/24 20:38 11/16/24 20:46 Amox Tr/Potassium Clavulanate 875 Mg Tablet PO 11/16/24 20:39 875 mg STAT ONE Administration Amoxicillin/Clavulanate Potassium Confirm 11/16/24 20:45 Amox Tr/Potassium Clavulanate 875 Mg Tablet Administered 11/16/24 20:46 Dose 875 mg .ROUTE .[facility] ONE Prednisone 60 mg 11/16/24 20:43 11/16/24 20:46 Prednisone 20 Mg Tablet PO 11/16/24 20:44 60 mg STAT ONE Administration Prednisone Confirm 11/16/24 20:45 Prednisone 20 Mg Tablet Administered 11/16/24 20:46 Dose 60 mg .ROUTE .[facility] ONE - Departure Departure Disposition: Home Clinical Impression: Parotiditis, Swelling of right side of face Condition: Stable Critical Care Time: No Referrals: ROXANA FANG [Primary Care Provider, [facility]] - Follow up/PCP as directed Instructions: Parotitis Prescriptions: Amox Tr/Potass Clav. 875 mg [Augmentin 875-125 Tablet] 875 mg PO BID 7 Days #13 tablet
[2024-11-16] MEDS ORDERED: Augmentin 875-125 Tablet ONE (20:45)
[2024-11-16] MEDS ORDERED: DELTASONE 20 MG ONE (20:45)
[2024-11-16] MEDS: DELTASONE 20 MG PO ONE (20:46)
[2024-11-16] MEDS: Augmentin 875-125 Tablet PO ONE (20:46)
--- NOTE | 2024-11-16 23:13 | XRAY ---
CLINICAL HISTORY: right facial swelling COMPARISON: 04/15/2024. TECHNIQUE: Contrast-enhanced CT. A scan of the paranasal sinuses was performed, with sagittal and coronal multiplanar reconstruction. One of the following dose reduction techniques was utilized for this exam: automated exposure control, adjustment of the mA and/or kV according to patient size, or use of iterative reconstruction. FINDINGS: Salivary Glands: The left parotid gland is not well visualized. Partial visualization of a small, mildly enhancing area of the superficial part of the left parotid gland is noted; this could be due to atrophy or surgically absent gland. The right parotid gland is slightly prominent and shows normal enhancement without an intrinsic focal lesion. The bilateral submandibular glands appear normal. There is no evidence of sialadenitis or masses. Sinuses: All paranasal sinuses are clear. There is no evidence of sinusitis, mucosal thickening, or fluid levels. The osteomeatal complexes are patent. Nasal Cavity: The nasal cavity is unremarkable. There are no masses, polyps, or deviations. Orbits: The orbits are normal in size and shape. The extraocular muscles and optic nerves are normal. There is no evidence of orbital masses or proptosis. Maxilla and Mandible: There is a normal appearance of the maxillary and mandibular bones. There are no fractures, lytic, or sclerotic lesions. Dentition is normal without significant periodontal disease. Facial Bones: There are no fractures or deformities. The zygomatic arches, nasal bones, and other facial structures are intact. Soft Tissues: The soft tissues of the face are normal. There are no abnormal masses, swelling, or lymphadenopathy. Vascular Structures: There is normal enhancement of the facial vascular structures. There is no evidence of vascular malformations or aneurysms. Temporomandibular Joints (TMJ): There is a normal appearance of the TMJ bilaterally. There is no evidence of joint effusion, degenerative changes, or dislocation. IMPRESSION: 1. There is prominence of the right parotid gland without focal intrinsic abnormality or surrounding fat stranding. The left parotid gland is not well visualized and appears to be atrophic or surgically absent. Findings are similar to the prior study. 2. There is interval healing of the left orbital fracture with interval resolution of surgical emphysema and left orbital swelling. 3. Otherwise, no acute significant soft tissue or osseous abnormality is noted. Electronically Signed by: Timothy Hermosillo MD. (11/16/2024 23:12:30 EDT)
[2024-11-16 23:38] VITALS: BP 120/77; PULSE 90
[2024-11-16 23:39] VITALS: RESP 19; O2SAT 96
== END 2024-11-16 23:37 | disposition home or self-care (01) ==
LOC: ED 19:35
DX: K11.20 Sialoadenitis, unspecified (principal); R22.0 Localized swelling, mass and lump, head; Z79.899 Other long term (current) drug therapy; Z72.0 Tobacco use